=== PATIENT | female | born 2000 | race Caucasian/White ===

== ENCOUNTER 2020-04-05 03:42 | Inpatient (IN) ==
[2020-04-05] MEDS ORDERED: *HR* LORazepam 1 MG TABLET PO PRN (05:12)
[2020-04-05] MEDS ORDERED: haloperidoL 5 MG TABLET PO PRN (05:12)
[2020-04-05] MEDS ORDERED: Haloperidol Lactate 5 MG/ML VIAL IM PRN (05:12)
[2020-04-05] MEDS ORDERED: Acetaminophen 325 MG TABLET PO PRN (05:12)
[2020-04-05] MEDS ORDERED: Mag Hydrox/Al Hydrox/Simeth 30 ML UDC PO PRN (05:12)
[2020-04-05] MEDS ORDERED: *HR* LORazepam 2 MG/ML VIAL IM PRN (05:12)
[2020-04-05] MEDS ORDERED: MOM Conc 10 ML UD.LIQ PO PRN (05:12)
[2020-04-05] MEDS ORDERED: hydrOXYzine pamoate 25 MG CAPSULE PO PRN (05:12)
[2020-04-05] MEDS ORDERED: traZODone 50 MG TABLET PO PRN (05:12)
[2020-04-05] MEDS: BuPROPion XL (24 HR) 150 MG TABLET PO SCH (12:52)
[2020-04-06] MEDS: BuPROPion XL (24 HR) 150 MG TABLET PO SCH (08:33)
[2020-04-06 09:00] VITALS: BP 116/81
[2020-04-06] MEDS ORDERED: FLU Vac QV 20-21 (6Month+)/PF 0.5 ML SYRINGE IM ONE (12:07)
== END 2020-04-06 14:15 | disposition home or self-care (01) | DRG 885 ==
LOC: EMEROOARM 03:42 → 1ANU 04:49
PROVIDERS: ADMIT Psychiatry & Neurology Psychiatry; ATTEND Psychiatry & Neurology Psychiatry